=== PATIENT | male | born 1970 | race Two or more races ===

== ENCOUNTER 2019-08-10 15:21 | Emergency (ER) | payer MEDICAID ==
[~2019-08-10] VITALS: Ht 175.3 cm; Wt 99.8 kg
--- NOTE | 2019-08-10 15:35 | NUR ---
PATIENT WAS MSE BY DR GÓMEZ IN ROOM 04B. IN THE ER FOR MEDICATION REFILL.
--- NOTE | 2019-08-10 15:51 | NUR ---
Patient discharged to home in stable condition. Written and verbal after care instructions given. Patient verbalizes understanding of instructions. Did not want any pain medication give now will just take from his RX Dr Alvarado aware.
[2019-08-10 15:52] VITALS: BP 132/82
== END 2019-08-10 15:53 | disposition home or self-care (01) ==
LOC: ER 15:21
DX: G89.29 Other chronic pain (principal); R10.30 Lower abdominal pain, unspecified; F41.8 Other specified anxiety disorders
CPT/HCPCS: A4663

== ENCOUNTER 2019-08-27 17:09 | Emergency (ER) | payer MEDICAID ==
[~2019-08-27] VITALS: Ht 175.3 cm; Wt 99.8 kg
--- NOTE | 2019-08-27 17:19 | NUR ---
@bedside, MSE in progress
--- NOTE | 2019-08-27 17:31 | NUR ---
Patient discharged to home in stable conditon. Written and verbal after care instructions given. Rx provided. Emphasized importance of not driving and increased fall risk after taking prescribed medications. Patient verbalizes understanding of instructions. Ambulated out of ER, steady gait, stable condition.
[2019-08-27 17:33] VITALS: BP 135/70
== END 2019-08-27 17:33 | disposition home or self-care (01) ==
LOC: ER 17:12
DX: Z76.0 Encounter for issue of repeat prescription (principal); G89.29 Other chronic pain; K42.9 Umbilical hernia without obstruction or gangrene
CPT/HCPCS: A4663

== ENCOUNTER 2019-09-12 14:56 | Emergency (ER) | payer MEDICAID ==
[~2019-09-12] VITALS: Ht 175.3 cm; Wt 99.8 kg
--- NOTE | 2019-09-12 15:15 | NUR ---
Patient discharged to home in stable condition. Written and verbal after care instructions given. Patient verbalizes understanding of instructions. pt walks in steady gait.Stressed follow up or return to ER for worsening s/s.
== END 2019-09-12 15:17 | disposition home or self-care (01) ==
LOC: ER 15:02
DX: Z76.0 Encounter for issue of repeat prescription (principal); Z75.3 Unavailability and inaccessibility of health-care facilities; F41.9 Anxiety disorder, unspecified; G89.29 Other chronic pain; K42.9 Umbilical hernia without obstruction or gangrene
CPT/HCPCS: A4663

== ENCOUNTER 2019-11-02 10:27 | Emergency (ER) | payer MEDICAID ==
[~2019-11-02] VITALS: Ht 175.3 cm; Wt 108.9 kg
--- NOTE | 2019-11-02 10:52 | NUR ---
PT WAS EVALUATED BY DR HUNTER. PT WAS D/C'd TO HOME. D/C INSTRUCTIONS GIVEN TO THE PT.
[2019-11-02 10:57] VITALS: BP 141/71
== END 2019-11-02 10:58 | disposition home or self-care (01) ==
LOC: ER 10:27
DX: Z76.0 Encounter for issue of repeat prescription (principal); G89.28 Other chronic postprocedural pain; R10.33 Periumbilical pain
CPT/HCPCS: A4663

== ENCOUNTER 2019-12-01 11:01 | Emergency (ER) | payer MEDICAID ==
[~2019-12-01] VITALS: Ht 175.3 cm; Wt 108.9 kg
--- NOTE | 2019-12-01 11:09 | NUR ---
Dr. Avalos at bedside for MSE
[2019-12-01] MEDS ORDERED: IBUPROFEN 600 MG TABLET PO ONE (11:15)
[2019-12-01] MEDS ORDERED: IBUPROFEN 600 MG TABLET ONE (11:18)
--- NOTE | 2019-12-01 11:25 | NUR ---
Patient discharged to home in stable condition. Written and verbal after care instructions given. Patient verbalizes understanding of instructions. Stressed follow up or return to ER for worsening s/s. Patient ambulating with steady gait. NAD noted
[2019-12-01 11:34] VITALS: BP 118/63
== END 2019-12-01 11:25 | disposition home or self-care (01) ==
LOC: ER 11:01
DX: K42.9 Umbilical hernia without obstruction or gangrene (principal); G89.29 Other chronic pain; F41.9 Anxiety disorder, unspecified; Z86.19 Personal history of other infectious and parasitic diseases
CPT/HCPCS: A4663

== ENCOUNTER 2020-07-23 14:01 | Emergency (ER) | payer MEDICAID ==
[~2020-07-23] VITALS: Ht 172.7 cm; Wt 81.6 kg
--- NOTE | 2020-07-23 14:21 | NUR ---
Patient discharged to home in stable condition. Written and verbal after care instructions given. Patient verbalizes understanding of instructions. Stressed follow up or return to ER for worsening s/s.
== END 2020-07-23 14:22 | disposition home or self-care (01) ==
LOC: ER 14:01
DX: K42.9 Umbilical hernia without obstruction or gangrene (principal); F41.9 Anxiety disorder, unspecified
CPT/HCPCS: A4663

== ENCOUNTER 2020-11-11 15:19 | Emergency (ER) | payer MEDICAID ==
[~2020-11-11] VITALS: Ht 172.7 cm; Wt 81.6 kg
[2020-11-11] MEDS ORDERED: MUPI22OI2 TP (15:51)
[2020-11-11] MEDS ORDERED: CEPH500C2 PO (15:52)
[2020-11-11] MEDS: LORAZEPAM 0.5 MG TABLET PO ONE (16:01)
--- NOTE | 2020-11-11 16:02 | NUR ---
Patient discharged to home in stable condition. Written and verbal after care instructions given. Patient verbalizes understanding of instructions. Stressed follow up or return to ER for worsening s/s. Addendum: 11/11/20 at 1605 by HAYLIE pt not driving.
[2020-11-11] MEDS ORDERED: LORAZEPAM 1 MG TABLET ONE (16:04)
[2020-11-11] MEDS ORDERED: HYDROCODONE/APAP 10-325 MG TABLET PO ONE (16:15)
[2020-11-11] MEDS ORDERED: HYDROCODONE/APAP 10-325 MG TABLET ONE (16:20)
== END 2020-11-11 16:06 | disposition home or self-care (01) ==
LOC: ER 15:19
DX: S30.811A Abrasion of abdominal wall, initial encounter (principal); S30.851A Superficial foreign body of abdominal wall, initial encounter; W45.8XXA Other foreign body or object entering through skin, initial encounter; W22.8XXA Striking against or struck by other objects, initial encounter; Y93.89 Activity, other specified; Y92.240 Courthouse as the place of occurrence of the external cause; R10.33 Periumbilical pain; F41.9 Anxiety disorder, unspecified
CPT/HCPCS: A4663

== ENCOUNTER 2023-07-12 19:11 | Inpatient (IN) | payer MEDICAID ==
[~2023-07-12] VITALS: Ht 175.3 cm; Wt 81.6 kg
[~2023-07-12 19:11] MED LIST: CEPH500C2 PO; MUPI22OI2 TP
[2023-07-12] MEDS ORDERED: VANCOMYCIN IV 200 ML ONE (23:51)
[2023-07-12] MEDS ORDERED: CEFTRIAXONE /D5W 50ML IVPB **ER PYXIS IV ONE (23:51)
[2023-07-12 23:54] LABS: BASOPHILS # (AUTO) 0.2 K/UL (0.0-0.2); BASOPHILS % (AUTO) 1.2 % (0.0-2.0); EOSINOPHILS # (AUTO) 0.2 K/uL (0.0-0.7); EOSINOPHILS % (AUTO) 1.6 % (0.0-7.0); HEMATOCRIT 44.7 % (36.7-47.1); LYMPHOCYTES # (AUTO) 0.8 K/uL (0.8-4.8); LYMPHOCYTES % (AUTO) 6.2 % (20.5-51.5); MEAN CORPUSCULAR HEMOGLOBIN 31.5 uug (23.8-33.4); MEAN CORPUSCULAR HGB CONC 34 g/dL (32.5-36.3); MEAN CORPUSCULAR VOLUME 94.1 fL (73.0-96.2); MONOCYTES # (AUTO) 0.5 K/uL (0.1-1.30); MONOCYTES % (AUTO) 3.9 % (0.0-11.0); NEUTROPHILS # (AUTO) 11.9 K/uL (1.8-8.9); NEUTROPHILS % (AUTO) 87.1 % (38.5-71.5); PLATELET COUNT (AUTO) 281 K/uL (152-348); RED BLOOD CELL COUNT(AUTO) 4.75 MIL/uL (4.06-5.63); RED CELL DISTRIBUTION WIDTH 13.9 % (12.1-16.2); WHITE BLOOD COUNT (AUTO) 13.7 K/uL (3.6-10.2)
[2023-07-12] MEDS: KETOROLAC TROMETHAMINE 30 MG INJ IVP ONE (23:58)
[2023-07-12] MEDS: CEFTRIAXONE 1 G in IV DEXTROSE 5% 50 ML IV ONE (23:59)
[2023-07-13] MEDS: TDAP DIPH,PERTUSS,TET VAC/PF 0.5 ML DISP.SYRIN IM ONE (00:03)
[2023-07-13 00:05] LABS: DIFFERENTIAL COMMENT 1; ERYTHROCYTE SEDIMENTATION RATE 18 MM/HR (0-15)
[2023-07-13 00:11] LABS: CALCIUM 9.2 mg/dL (8.5-10.1); CREATININE 0.9 mg/dL (0.6-1.3); POTASSIUM 3.8 mmol/L (3.5-5.1)
[2023-07-13 00:17] LABS: ALBUMIN 3.5 g/dL (3.4-5.0); BILIRUBIN,TOTAL 0.4 mg/dL (0.2-1.0); TOTAL PROTEIN, SERUM 7.4 g/dL (6.4-8.2)
[2023-07-13] MEDS ORDERED: LORAZEPAM 1 MG TABLET ONE (00:26)
[2023-07-13] MEDS: LORAZEPAM 0.5 MG TABLET PO ONE (00:30)
[2023-07-13] MEDS: VANCOMYCIN IV 1,000 MG in IV DEXTROSE 5% 250 ML IV ONE (00:34)
[2023-07-13 00:44] LABS: C-REACTIVE PROTEIN 2.9 mg/dL (0.00-0.30)
[2023-07-13] MEDS ORDERED: hydrALAZINE HCL 20 MG/1 ML VIAL IV PRN (04:45)
[2023-07-13] MEDS ORDERED: ONDANSETRON 4 MG/2 ML VIAL IV PRN (04:45)
[2023-07-13] MEDS: IV NS 1000 ML 1,000 ML IV SCH (05:12)
[2023-07-13] MEDS ORDERED: MORPHINE SULFATE 2 MG/1 ML DISP.SYRIN ONE (05:39)
[2023-07-13] MEDS: MORPHINE SULFATE 2 MG/1 ML DISP.SYRIN IVP PRN (05:49)
[2023-07-13] MEDS ORDERED: CLINDAMYCIN 900MG/D5W 100ML IVPB **ER PYXIS ONLY IJ ONE (09:26)
[2023-07-13] MEDS ORDERED: DOCUSATE SODIUM 100 MG CAPSULE PO ONE (09:26)
[2023-07-13] MEDS ORDERED: HEPARIN SODIUM,PORCINE 5,000 UNITS/ML VIAL ONE (09:26)
[2023-07-13] MEDS: HEPARIN SODIUM,PORCINE 5,000 UNITS/ML VIAL SQ SCH (09:36)
[2023-07-13] MEDS: CLINDAMYCIN PHOSPHATE IV 900 MG in IV DEXTROSE 5% 100 ML IV SCH (09:41)
[2023-07-13] MEDS: DOCUSATE SODIUM 100 MG CAPSULE PO SCH (09:41)
[2023-07-13 11:50] VITALS: TEMP 98.2
[2023-07-13] MEDS: IV NS 1000 ML 1,000 ML IV PRN (14:11)
[2023-07-13 16:03] VITALS: BP 110/25; TEMP 98.1; O2SAT 98
[2023-07-13] MEDS: CLINDAMYCIN PHOSPHATE IV 900 MG in IV DEXTROSE 5% 50 ML IV SCH (17:48)
[2023-07-13 20:00] VITALS: BP 118/74; TEMP 98.6; O2SAT 98
[2023-07-14] MEDS ORDERED: levoFLOXacin 750MG/D5W 150 ML IV ONE (00:28)
[2023-07-14] MEDS: levoFLOXacin 750MG/D5W 750 MG in PREMIXED 1 EACH IV SCH (01:06)
[2023-07-14] MEDS: TEMAZEPAM 7.5 MG CAPSULE PO PRN (01:06)
[2023-07-14] MEDS: LORAZEPAM 0.5 MG TABLET PO PRN (06:21)
[2023-07-14 08:08] LABS: BASOPHILS % (AUTO) 0.7 % (0.0-2.0); EOSINOPHILS # (AUTO) 0.4 K/uL (0.0-0.7); HEMATOCRIT 38.6 % (36.7-47.1); HEMOGLOBIN 12.9 g/dL (12.5-16.3); LYMPHOCYTES # (AUTO) 1.2 K/uL (0.8-4.8); LYMPHOCYTES % (AUTO) 16.2 % (20.5-51.5); MEAN CORPUSCULAR HEMOGLOBIN 31.5 uug (23.8-33.4); MEAN CORPUSCULAR HGB CONC 33 g/dL (32.5-36.3); MEAN CORPUSCULAR VOLUME 94.5 fL (73.0-96.2); MONOCYTES # (AUTO) 0.4 K/uL (0.1-1.30); NEUTROPHILS # (AUTO) 5.3 K/uL (1.8-8.9); NEUTROPHILS % (AUTO) 71.1 % (38.5-71.5); PLATELET COUNT (AUTO) 246 K/uL (152-348); RED BLOOD CELL COUNT(AUTO) 4.09 MIL/uL (4.06-5.63); RED CELL DISTRIBUTION WIDTH 13.7 % (12.1-16.2); WHITE BLOOD COUNT (AUTO) 7.4 K/uL (3.6-10.2)
[2023-07-14 08:09] LABS: DIFFERENTIAL COMMENT 1
[2023-07-14 08:36] LABS: ALANINE AMINOTRANSFERASE 15 U/L (16-63); ALBUMIN 2.5 g/dL (3.4-5.0); ALKALINE PHOSPHATASE 111 U/L (50-136); ASPARTATE AMINOTRANSFERASE 14 U/L (15-37); BILIRUBIN,TOTAL 0.3 mg/dL (0.2-1.0); CALCIUM 8.1 mg/dL (8.5-10.1); CARBON DIOXIDE 27 mmol/L (21-32); CHLORIDE 107 mmol/L (98-107); CREATININE 0.6 mg/dL (0.6-1.3); GLUCOSE 85 mg/dL (74-106); PHOSPHOROUS 3.7 mg/dL (2.5-4.9); POTASSIUM 3.7 mmol/L (3.5-5.1); SODIUM SERUM 142 mmol/L (136-145); TOTAL PROTEIN, SERUM 5.9 g/dL (6.4-8.2); UREA NITROGEN, BLOOD 9 mg/dL (7-18)
[2023-07-14 11:58] VITALS: BP 119/74; TEMP 98.2; O2SAT 97
[2023-07-14 16:13] VITALS: TEMP 98.5; O2SAT 95
[2023-07-14 20:00] VITALS: BP 124/74; TEMP 99; O2SAT 20
[2023-07-15 06:03] VITALS: BP 130/76; TEMP 99.2; O2SAT 97
[2023-07-15 09:36] VITALS: BP 112/73; TEMP 98.2; O2SAT 100
[2023-07-15 17:19] VITALS: BP 120/70; TEMP 98.2; O2SAT 99
[2023-07-15 20:00] VITALS: BP 119/71; TEMP 98.1; O2SAT 99
[2023-07-16 05:19] VITALS: BP 128/82; TEMP 98.1; O2SAT 96
[2023-07-16 07:04] LABS: BASOPHILS # (AUTO) 0.1 K/UL (0.0-0.2); EOSINOPHILS # (AUTO) 0.6 K/uL (0.0-0.7); EOSINOPHILS % (AUTO) 8.9 % (0.0-7.0); HEMATOCRIT 40.5 % (36.7-47.1); HEMOGLOBIN 13.8 g/dL (12.5-16.3); LYMPHOCYTES # (AUTO) 1.3 K/uL (0.8-4.8); LYMPHOCYTES % (AUTO) 20.4 % (20.5-51.5); MEAN CORPUSCULAR HEMOGLOBIN 31.7 uug (23.8-33.4); MEAN CORPUSCULAR HGB CONC 34 g/dL (32.5-36.3); MEAN CORPUSCULAR VOLUME 93.2 fL (73.0-96.2); MONOCYTES # (AUTO) 0.3 K/uL (0.1-1.30); MONOCYTES % (AUTO) 5.3 % (0.0-11.0); NEUTROPHILS # (AUTO) 4.2 K/uL (1.8-8.9); NEUTROPHILS % (AUTO) 64.4 % (38.5-71.5); PLATELET COUNT (AUTO) 282 K/uL (152-348); RED BLOOD CELL COUNT(AUTO) 4.35 MIL/uL (4.06-5.63); RED CELL DISTRIBUTION WIDTH 13.5 % (12.1-16.2); WHITE BLOOD COUNT (AUTO) 6.4 K/uL (3.6-10.2)
[2023-07-16 07:11] LABS: CALCIUM 8.6 mg/dL (8.5-10.1); CREATININE 0.8 mg/dL (0.6-1.3); MAGNESIUM 1.9 mg/dL (1.8-2.4); PHOSPHOROUS 4.2 mg/dL (2.5-4.9); POTASSIUM 3.7 mmol/L (3.5-5.1)
[2023-07-16 07:18] LABS: DIFFERENTIAL COMMENT 1
[2023-07-16 11:37] VITALS: BP 116/68; TEMP 98.1; O2SAT 97
[2023-07-16 15:50] VITALS: BP 105/60; TEMP 98.9; O2SAT 99
[2023-07-16] MEDS: ACETAMINOPHEN 325 MG TABLET PO PRN (17:06)
[2023-07-16 20:00] VITALS: BP 106/64; TEMP 98.4; O2SAT 97
[2023-07-16] MEDS: levoFLOXacin 750 MG TABLET PO SCH (20:45)
[2023-07-17] MEDS ORDERED: IBUP-1955 PO (10:58)
[2023-07-17] MEDS ORDERED: LEVO750T46 PO (10:58)
[2023-07-17] MEDS ORDERED: SULF1TAB48 PO (10:58)
[2023-07-17 11:00] VITALS: BP 113/71; TEMP 98.6; O2SAT 96
[2023-07-17 12:10] VITALS: BP 111/56; TEMP 98.3; O2SAT 96
== END 2023-07-17 12:55 | disposition home or self-care (01) | DRG 351 ==
LOC: ER 19:14 → MEDSURG3 07-13 11:29
PROVIDERS: ADMIT Internal Medicine; ATTEND Nurse Practitioner Acute Care
DX: S61.411A Laceration without foreign body of right hand, initial encounter (principal); E87.0 Hyperosmolality and hypernatremia; L03.113 Cellulitis of right upper limb; W27.0XXA Contact with workbench tool, initial encounter; Y92.69 Other specified industrial and construction area as the place of occurrence of the external cause; Y99.0 Civilian activity done for income or pay; B95.62 Methicillin resistant Staphylococcus aureus infection as the cause of diseases classified elsewhere; B96.83 Acinetobacter baumannii as the cause of diseases classified elsewhere; F41.9 Anxiety disorder, unspecified; G89.29 Other chronic pain; K42.9 Umbilical hernia without obstruction or gangrene; Z18.10 Retained metal fragments, unspecified; R79.82 Elevated C-reactive protein (CRP)
CPT/HCPCS: 36415; 73120; 73200; 83605; 83735; 84100; 85025; 85610; 85651; 86140; 87040; 90715; A4606; A4663; G0378; J0696; J1644; J1885; J1956; J2270; J3370; J3490; J7040